=== PATIENT | male | born 1975 | race Caucasian/White ===

== ENCOUNTER → 2019-10-04 14:43 | Outpatient (BNVA) | payer OTHER, SELFPAY | PROVIDERS: Family Provider Family Medicine; PCP Family Medicine; Visit Provider Nurse Practitioner Family | DX: M79.642 Pain in left hand (principal) | CPT/HCPCS: 73130 ==

== ENCOUNTER 2019-10-04 16:45 | Emergency (ER) | payer OTHER, SELFPAY ==
[2019-10-04 16:58] VITALS: BP 141/87; PULSE 65; RESP 14; TEMP 36.9; O2SAT 97; BMI 28.5
--- NOTE | 2019-10-04 17:01 | ED_ITS ---
HPI - Extremity Problem General: Chief complaint: Extremity Injury, Upper Stated complaint: finger injury Time Seen by Provider: 10/04/19 17:01 Source: patient Mode of arrival: ambulatory Limitations: no limitations History of Present Illness: HPI Narrative: Patient dislocated his left fifth digit this morning around 11/01/1929. Patient comes in tonight due to continued discomfort and needing reduction and dislocation. Patient had been seen by another provider prior to the ER visit and had a x-ray which confirmed dislocation. Patient appears well. Patient appears in mild pain. MD Complaint: extremity pain Review of Systems General: Reports: 10 or more systems reviewed and unremarkable except in HPI and below Musc: Reports: extremity pain PFSH ED PFSH: Social History (Updated 07/05/19 @ 13:53 by Sarah Monterroso LPN) Smoking and tobacco status: never smoked Alcohol intake: never Adopted: No Caregiver/support person: Yes Lives independently: No Household members: spouse Marital status: Current occupational status: employed Sexually active: Yes Current gender identity: Male Physical Exam Const: COMMON NORMALS: no acute distress and patient oriented x3 GENERAL APPEARANCE: cooperative HENMT: COMMON NORMALS: normocephalic, TM's normal bilaterally and Normal external nose present HEAD & SCALP: normal to inspection and normocephalic NOSE: Normal external nose present TYMPANIC MEMBRANE: TM's normal bilaterally MOUTH: Normal oral and palatal mucosa present THROAT: posterior oropharynx normal Eye: GENERAL EYE: appearance normal, both eyes and all related structures Neck/C-Spine: COMMON NORMALS: full ROM Lymph: LYMPHATIC: no lymphadenopathy noted Chest: COMMONS NORMALS: normal inspection of the chest Resp: COMMON NORMALS: normal respiratory effort EFFORT & INSPECTION: Yes able to speak in complete sentences Cardio: COMMON NORMALS: regular rate and regular rhythm RATE: regular rate RHYTHM: regular rhythm GI: COMMON NORMALS: non-tender : COMMON NORMALS: Yes no CVA tenderness BLADDER/KIDNEY EXAM: Yes no CVA tenderness Back/Pelvis: COMMON NORMALS: no CVA tenderness and thoracic and lumbar spine normal to inspection Extremity: NARRATIVE EXTREMITY EXAM: Shortening of the left fifth digit, tendon function deficiency in the PIP joint, prompt capillary refill. Neuro: COMMON NORMALS: patient oriented x3 and moves all extremities Psych: COMMON NORMALS: mental status grossly normal and cooperative Skin: COMMON NORMALS: no rashes or lesions noted GENERAL SKIN EXAM: no rashes or lesions noted Procedures Orthopedic Joint Reduction Joint #1: Side: left Joint Reduction Location: finger Analgesia: nerve block Local Anesthesia: lidocaine 1% Amount of anesthesic used (mL): 4 Technique used: direct manipulation Post-reduction neuro exam: intact Post-reduction vascular: intact Post Reduction X-Ray Obtained: Yes Post Reduction X-Ray Results: reduced Splint Applied: Yes Patient Tolerated Procedure: well Course Vital Signs: Vital signs: Vital Signs Temperature 98.5 F 10/04/19 16:58 Pulse Rate 65 10/04/19 16:58 Respiratory Rate 14 10/04/19 16:58 Blood Pressure 141/87 10/04/19 16:58 Pulse Oximetry 97 10/04/19 16:58 MDM - Extremity (Nontraumatic) MDM Narrative: Medical decision making narrative: Patient comes in for evaluat ion of injury to the left fifth digit. On exam patient has shortening of the digit and decreased tendon function to the PIP joint of the left middle finger. Cap refill is intact. Vital signs are normal. Differential diagnosis includes but not limited to fracture, dislocation, sprain. X-ray noted a anterior dislocation subluxation of the PIP joint of the fifth digit left hand. Under digital block with 1% lidocaine direct manipulation was applied and successful reduction was noted. Repeat x-ray noted successful reduction. Finger was placed in splint with post procedure instructions to the patient. Patient reports understanding agreed to plan. Discharge Plan Discharge Patient Disposition: Home, Self-Care Clinical Impression: Dislocation of finger Qualifiers: Encounter type: initial encounter Qualified Code(s): S63.259A - Unspecified dislocation of unspecified finger, initial encounter Condition: Stable Prescriptions: No Action paroxetine HCl [Paxil] 20 mg tablet 20 mg PO DAILY Qty: 90 RF: 3 Discharge Orders: Discharge Order (Routine); Ordered 10/04/19 Ordered By: Evaristo Dukes Referrals: Heike Head DO [Primary Care Provider] - Discharge Diet: Usual diet Discharge Activity: Increase activity as tolerated Patient Instructions: Finger Dislocation (ED) Activity Restrictions/Additional Instructions: Wear splint for the next 4 to 7 days. Increase activity as tolerated. Use acetaminophen or ibuprofen for pain. Drink plenty of water with medication. Follow-up with primary care in 1 week. Return to the ER for new concerns. Coding Level of Care Code ED [employer] for [employer] Fwd Exam Comprehensive
--- NOTE | 2019-10-04 17:23 | XRR_ITS ---
PROCEDURE INFORMATION: Exam: XR Left Finger(s) Exam date and time: 10/04/2019 6:05 PM Age: 44 years old Clinical indication: Pain; Finger(s); Bilateral; Additional info: Post reduction TECHNIQUE: Imaging protocol: XR Left fingers. Views: Minimum 2 views. COMPARISON: CR XR hand LT min 3V* [id number] 10/04/2019 2:58 PM FINDINGS: Bones/joints: Previously present dislocation of the proximal interphalangeal joint of the 5th digit has now been successfully reduced. The examination is negative for acute fractures. Soft tissues: Soft tissue edema is seen surrounding the proximal interphalangeal joint XR/XR finger LT min 2V [id number] IMPRESSION: 1. Successful reduction of proximal interphalangeal joint 5th digit 2. Soft tissue edema near the proximal interphalangeal joint 5th digit
[2019-10-04 18:18] VITALS: BP 124/65; PULSE 70; RESP 18; O2SAT 98
== END 2019-10-04 18:21 | disposition home or self-care (01) ==
PROVIDERS: Emergency Provider Nurse Practitioner Family; PCP Family Medicine
DX: S63.287A Dislocation of proximal interphalangeal joint of left little finger, initial encounter (principal); X58.XXXA Exposure to other specified factors, initial encounter
CPT/HCPCS: 12345; 26770; 73140; 99281; 99283